=== PATIENT | female | born 1960 | race Caucasian/White ===

== ENCOUNTER 2024-03-11 22:10 | Emergency (ER) | payer MEDICARE, SELFPAY ==
[2024-03-11 22:25] VITALS: BP 181/88; PULSE 81; TEMP 36.8; O2SAT 100
--- NOTE | 2024-03-11 23:55 | PC.NURSE ---
Pt amb to room. Gait steady. Pt states that she has been feeling lightheaded/off balance. Pt states that it started after she woke up from a nightmare. States that it 'really scared her. Pt states that thru out the day she has been having spells on and off. Pt states that they stopped at [employer] after going to the movies tonight,, took her blood pressure and it was high. Pt states that she is diabetic but stopped taking meds because of the side effects. Pt has a history of bypass surgery. Pt on cart, EKG done.
[2024-03-12] VITALS (28 sets, daily range): BP systolic 129–167; BP diastolic 72–114; PULSE 78–89; O2SAT 93–98
--- NOTE | 2024-03-12 00:48 | ED.DIZZY1 ---
HPI - Dizziness General Chief Complaint: Dizziness Stated Complaint: dizziness Time Seen by Provider: 03/12/24 00:01 Source: patient Mode of arrival: walk-in Limitations: no limitations History of Present Illness HPI Narrative: dizzy for past couple of days. positional. ok sitting still. When she gets up to walk from sitting position she feels off balance and has to hold on. Denies room spinning. No headache or ear pain. Did have chest pain but feels this is because she has been doing Yoga with her arms. No palpitations. No associated nausea Related Data Allergies Allergy/AdvReac Type Severity Reaction Status Date / Time No Known Drug Allergies Allergy Verified 03/11/24 22:30 Review of Systems ROS Status of ROS 10 or more systems reviewed and unremarkable except as noted in history and below PFSH PFSH Social History Little interest or pleasure in doing things: not at all Feeling down, depressed, or hopeless: not at all Exam Constitutional Vital Signs, click to edit/add: Last Vital Signs Temp 98.3 F 03/11/24 22:25 Pulse 81 03/12/24 03:10 Resp 15 03/12/24 03:10 BP 142/91 H 03/12/24 03:00 Pulse Ox 93 L 03/12/24 03:10 O2 Del Method Room Air 03/12/24 01:00 Common normals: no apparent distress, average body habitus, oriented x3, no limitations, healthy appearing, alert and well nourished [facility] Common normals: normocephalic and head/scalp atraumatic Eye Common normals: PERRL and EOMs intact bilaterally Other: no nystagmus Respiratory Common normals: normal respiratory effort, no retractions, no use of accessory muscles and clear to auscultation bilaterally Cardio Common normals: regular rate, regular rhythm, S1 normal heart sound and S2 normal heart sound Extremity Common normals: normal to inspection and full ROM Neuro Common normals: oriented x3, CN's II-XII intact bilaterally, moves all extremities and no focal motor deficits Psych Appearance: grossly normal Course Vital Signs Vital signs: Vital Signs Temperature 98.3 F 03/11/24 22:25 Pulse Rate 81 03/11/24 22:25 Respiratory Rate 18 03/11/24 22:25 Blood Pressure 181/88 H 03/11/24 22:25 Pulse Oximetry 100 03/11/24 22:25 Oxygen Delivery Method Room Air 03/11/24 22:25 Temperature 98.3 F 03/11/24 22:25 Pulse Rate 81 03/12/24 03:10 Respiratory Rate 15 03/12/24 03:10 Blood Pressure 142/91 H 03/12/24 03:00 Pulse Oximetry 93 L 03/12/24 03:10 Oxygen Delivery Method Room Air 03/12/24 01:00 MDM - Dizziness MDM Narrative Medical decision making narrative: patient presents with dizziness episodes that are positional for past couple of days. Describes cleaning laundry and when she bent down she became dizzy. Similarly asymptomatic while in a chair but upon standing to walk she would become off balance. treated with ativan and ativert while in the department and able to walk to the bathroom without dizziness. CT brain without acute findings. BS elevated . No evidence of DKA. Patient admits she is diabetic but self discontinued her diabetic medication as she choose to treat it herself with natural medications. She is advised to follow up with her doctor within the next couple of days to start treating her diabetes and to follow up for her dizziness Lab Data Labs: Lab Results 03/12/24 Range/Units 01:30 WBC 7.1 (4.0-11.0) 10^3/uL RBC 4.29 (4.20-5.40) 10^6/uL Hgb 13.7 (12.0-16.0) g/dL Hct 39.0 (36.0-48.0) % MCV 90.9 (81.0-99.0) fL MCH 31.9 (26.7-34.0) pg MCHC 35.1 (29.9-35.2) g/dL RDW 13.5 (11.0-15.0) % Plt Count 152 (150-450) 10^3/uL MPV 11.8 (9.5-13.5) fL Neut % (Auto) 59.2 (43.0-75.0) % Lymph % (Auto) 28.7 (20.5-60.0) % [place] % (Auto) 9.6 (1.7-12.0) % Eos % (Auto) 1.4 (0.9-7.0) % Baso % (Auto) 1.0 (0.2-2.0) % Neut # (Auto) 4.2 (1.4-6.5) 10^3/uL Lymph # (Auto) 2.0 (1.2-3.8) 10^3/uL [place] # (Auto) 0.7 (0.3-0.8) 10^3/uL Eos # (Auto) 0.1 (0.0-0.7) 10^3/uL Baso # (Auto) 0.1 (0.0-0.1) 10^3/uL Abs Immat Gran (auto) 0.01 (0.00-0.03) 10^3/uL Imm/Tot Granulo (auto) 0.1 (0.0-0.5) % Sodium 137 (136-145) mmol/L Potassium 4.1 (3.5-5.1) mmol/L Chloride 103 (98-107) mmol/L Carbon Dioxide 23.6 (21.0-32.0) mmol/L Anion Gap 14.5 BUN 12.0 (7.0-18.0) mg/dL Creatinine 0.75 (0.55-1.02) mg/dL Est GFR ( Amer) >60 (>=60 mL/min/1.73m^2) Est GFR (Non-Af Amer) >60 (>=60 mL/min/1.73m^2) BUN/Creatinine Ratio 16.0 Glucose 424 H (74-106) mg/dL Calcium 9.2 (8.5-10.1) mg/dL Troponin I High Sens <4.0 L (4.0-51.3) pg/mL Discharge Plan Discharge Chief Complaint: Dizziness Clinical Impression: Dizziness, Hyperglycemia, Diabetes mellitus Patient Disposition: Home, Self-Care Print Language: [place] Instructions: Dizziness (ED), Diabetic Hyperglycemia (ED) Additional Instructions: follow up with your doctor in a couple of days. need to treat your diabetes Referrals: Physician,Non-Staff, MD [Primary Care Provider] - 1 week
--- NOTE | 2024-03-12 00:51 | CT_ITS ---
The [address] [address] Patient Name: ISABELLA GLASER MRN: [id number] date: 1960 Sex: F Assigned Patient Location: ER Current Patient Location: Accession/Order Number: [id number] Exam Date: 03/12/2024 01:08 Report Date: 03/12/2024 02:12 At the request of: FORREST GUERRERO Procedure: CT head/brain wo con EXAM: CT head/brain wo con INDICATION: 64 years old; Female. Dizziness for 2 days. TECHNIQUE: CT Head (ax/cor/sag reformats). Ionizing radiation dose reduced via iterative reconstruction/FBP blend and body size kV/mA adjustment. Comparison: Head CT dated 07/09/2017. A portion examination is degraded by streak artifacts associated with the patient's earrings. The patient declined to remove the earrings. FINDINGS: POSTOPERATIVE CHANGES: None. BRAIN PARENCHYMA: Allowing for artifacts, no intraparenchymal or extra-axial hemorrhage. No mass effect. No midline shift or herniation. Normal lion/white differentiation. VENTRICLES/EXTRA-AXIAL SPACES: Normal for patient's age. SINUSES/MASTOIDS: The sinuses are clear although the maxillary sinuses are not completely included. Mastoids and middle ears are clear. Vanessa bullosa bilaterally. MSK: No displaced or depressed calvarial fracture. OTHER: No hyperdense intraluminal thrombus. Vascular calcification is noted. CT/CT head/brain wo con IMPRESSION: 1. No acute intracranial abnormality. No hemorrhage or mass effect. If there is concern for infarction, then MRI including diffusion imaging would be more sensitive. 2. Vascular calcification. Electronically authenticated by: CARY JENKINS Date: 03/12/2024 02:12
--- NOTE | 2024-03-12 00:51 | ECG_ITS ---
The [facility] Test Date: 2024-03-12 Pat Name: ISABELLA GLASER Department: Room: - Gender: Female Crank Hand: : 1960 Requested By: [id number] Order Number: [id number] Reading MD: PALAK GEORGE Measurements Intervals [place] Rate: 82 P: 16 CO: 142 QRS: 64 QRSD: 96 T: 17 QT: 362 QTc: 400 Interpretive Statements 1100 Sinus rhythm 4068 Nonspecific [place] abnormality 9130 borderline ECG Compared to ECG 05/11/2020 12:16:58 Sinus tachycardia no longer present Electronically Signed On 03-12-2024 6:49:14 EST by PALAK GEORGE
--- NOTE | 2024-03-12 00:51 | XR_ITS ---
The [place] [id number] Patient Name: ISABELLA GLASER MRN: [id number] date: 1960 Sex: F Assigned Patient Location: ER Current Patient Location: ER Accession/Order Number: [id number] Exam Date: 03/12/2024 01:08 Report Date: 03/12/2024 02:50 At the request of: FORREST GUERRERO Procedure: XR chest 1V EXAM: XR chest 1V HISTORY: chest pain COMPARISON: Chest radiograph dated 05/14/2020. TECHNIQUE: One view of the chest was obtained. FINDINGS: There are postsurgical changes of the chest with median sternotomy wires and surgical clips in place. The cardiac silhouette is stable in size. There is linear atelectasis and/or scarring at the left lung base. Otherwise, the lungs are clear. There is no significant pneumothorax or pleural effusion. No acute osseous abnormality is seen. XR/XR chest 1V IMPRESSION: 1. No acute cardiopulmonary abnormality. Electronically authenticated by: Moe DOYLE Date: 03/12/2024 02:50
[2024-03-12] MEDS: LORAZEPAM 0.5 MG TABLET PO (01:17)
[2024-03-12] MEDS: MECLIZINE HCL 12.5 MG TABLET 25 MG PO (01:17)
[2024-03-12 01:33] LABS: Basophils Absolute Auto 0.1 10^3/uL (0.0-0.1); Eosinophils Absolute Auto 0.1 10^3/uL (0.0-0.7); Eosinophils Percent Auto 1.4 % (0.9-7.0); Hemoglobin 13.7 g/dL (12.0-16.0); Immature Granulocytes Abs Auto 0.01 10^3/uL (0.00-0.03); Immature Granulocytes Pct Auto 0.1 % (0.0-0.5); Lymphocytes Percent Auto 28.7 % (20.5-60.0); Mean Corpuscular HGB Conc 35.1 g/dL (29.9-35.2); Mean Corpuscular Hemoglobin 31.9 pg (26.7-34.0); Mean Corpuscular Volume 90.9 fL (81.0-99.0); Mean Platelet Volume 11.8 fL (9.5-13.5); Monocytes Absolute Auto 0.7 10^3/uL (0.3-0.8); Monocytes Percent Auto 9.6 % (1.7-12.0); Neutrophils Absolute Auto 4.2 10^3/uL (1.4-6.5); Neutrophils Percent Auto 59.2 % (43.0-75.0); Platelet Count 152 10^3/uL (150-450); Red Blood Count 4.29 10^6/uL (4.20-5.40); Red Cell Distribution Width 13.5 % (11.0-15.0); White Blood Count 7.1 10^3/uL (4.0-11.0)
[2024-03-12 01:51] LABS: Anion Gap 14.5; Calcium 9.2 mg/dL (8.5-10.1); Carbon Dioxide 23.6 mmol/L (21.0-32.0); Chloride 103 mmol/L (98-107); Estimated GFR (African America >60 (>=60 mL/min/1.73m^2); Estimated GFR (Non-African Ame >60 (>=60 mL/min/1.73m^2); Glucose 424 mg/dL (74-106); Potassium 4.1 mmol/L (3.5-5.1); Sodium 137 mmol/L (136-145); Troponin I High Sensitivity <4.0 pg/mL (4.0-51.3)
== END 2024-03-12 03:37 | disposition home or self-care (01) ==
PROVIDERS: Emergency Provider Internal Medicine
DX: R42 Dizziness and giddiness (principal); E11.65 Type 2 diabetes mellitus with hyperglycemia; T50.906A Underdosing of unspecified drugs, medicaments and biological substances, initial encounter; Z91.128 Patient's intentional underdosing of medication regimen for other reason
CPT/HCPCS: 36415; 70450; 71045; 80048; 84484; 85025; 93005; 99285